=== PATIENT | male | born 2005 | race Caucasian/White ===

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

== ENCOUNTER 2025-03-16 02:25 | Emergency (ER) | payer SELFPAY ==
[~2025-03-16] VITALS: Ht 185.4 cm; Wt 113.6 kg
[2025-03-16 02:30] VITALS: TEMP 98.5
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
[2025-03-16 03:34] VITALS: BP 128/90; PULSE 98; RESP 16; O2SAT 98
== END 2025-03-16 03:36 | disposition home or self-care (01) ==
LOC: ER 02:25
DX: S01.511A Laceration without foreign body of lip, initial encounter (principal); S01.531A Puncture wound without foreign body of lip, initial encounter; J45.909 Unspecified asthma, uncomplicated; Y04.0XXA Assault by unarmed brawl or fight, initial encounter; Y93.89 Activity, other specified; Y92.89 Other specified places as the place of occurrence of the external cause; Y99.8 Other external cause status
CPT/HCPCS: 99281; 99282